=== PATIENT | female | born 1960 | race African-American/Black ===

== ENCOUNTER 2019-06-16 14:41 | Emergency (ER) | payer MEDICARE, MEDICAID ==
[~2019-06-16] VITALS: Ht 162.6 cm; Wt 112.5 kg
[~2019-06-16 14:41] MED LIST: AMLODIPINE BESYL5 MG ORAL; ASPIR 8181 MG ORAL; BACTRIM DS TAB1 EAC1 ORAL; BACTRIM-DS1 EA ORAL; CLOPIDOGREL75 MG ORAL; FLUOXETINE HCL20 MG ORAL; KEFLEX500 MG ORAL; NITROSTAT0.4 M1 SL; NORCO 5-325 TA1 EACH ORAL; SIMVASTATIN20 MG ORAL; TRAMADOL HCL50 MG ORAL; TYLENOL650 MG/20. ORAL
--- NOTE | 2019-06-16 15:11 | NUR ---
ED Nurse Note:urine sent to lab
[2019-06-16 15:41] LABS: APPEARANCE,URINE SLIGHTLY CLOUDY; BILIRUBIN, URINE NEGATIVE (NEGATIVE); GLUCOSE, URINE (UA) NEGATIVE (NEGATIVE); KETONES,URINE NEGATIVE (NEGATIVE); LEUKOCYTE ESTERASE ,URINE NEGATIVE (NEGATIVE); NITRITE,URINE NEGATIVE (NEGATIVE); PH,URINE 5 (4.5-8.0); PROTEIN,URINE 1+ (NEGATIVE); UROBILINOGEN,URINE NORMAL MG/DL (0.0-1.0)
[2019-06-16 15:42] LABS: COLOR,URINE YELLOW
[2019-06-16] MEDS ORDERED: Phenazopyridine 200mg tab ORAL ONE (16:15)
--- NOTE | 2019-06-16 16:21 | Emergency Room Report ---
History of Present Illness General Chief Complaint: Back Pain-No Injury Source: Patient Present Illness HPI 58-year-old female presents to the emergency department complaining of 10 out of 10 severity dysuria, hematuria, urinary frequency and abdominal pain that radiates towards the flank area bilaterally which has been progressive x1 week. Patient reports she has been taking oral antibiotics ciprofloxacin for 4 days with no improvement of her symptoms. Patient denies fevers or chills she denies nausea, vomiting, constipation or diarrhea. She denies trauma or fall. She denies intermittent sharp pain she reports her pain is constant and dull in it over the course of 1 week migrated from lower mid abdominal area towards the low back bilaterally. Patient denies paresthesias, saddle anesthesia or urinary retention/incontinence. She denies CP, SOB, dyspnea or Palpitations. She denies pain radiating straight back, or midline back pain. Allergies: Coded Allergies: IBUPROFEN (Verified Allergy, Intermediate, Hives, 08/25/13) Patient History Past Medical History: see triage record, HTN, OR Past Surgical History: none Pertinent Family History: none Last Menstrual Period: na Now: No Reviewed Nursing Documentation: PMH: Agreed; PSxH: Agreed Nursing Documentation-PMH Past Medical History: No History, Except For Hx Cardiac Problems: Yes - x2 stent, high cholesterol Hx Hypertension: Yes Review of Systems All Other Systems: negative except mentioned in HPI Physical Exam Vital Signs Date Time Temp Pulse Resp B/P (MAP) Pulse Ox O2 Delivery O2 Flow Rate FiO2 06/16/19 14:54 97.9 79 18 115/71 (86) 99 Room Air Sp02 EP Interpretation: reviewed, normal General Appearance: no apparent distress, alert, GCS 15, non-toxic Head: normocephalic, atraumatic Eyes: bilateral eye normal inspection, bilateral eye PERRL ENT: hearing grossly normal, normal voice Neck: full range of motion Respiratory: lungs clear, normal breath sounds, speaking full sentences Cardiovascular #1: regular rate, rhythm Gastrointestinal: normal bowel sounds, non tender - no appreciable tenderness on exam., soft, non-distended, no guarding Rectal: deferred Genitourinary: normal inspection, no CVA tenderness Musculoskeletal: back normal, normal range of motion, gait/station normal, non- tender Neurologic: alert, motor strength/tone normal, oriented x3, sensory intact, responsive, speech normal Psychiatric: judgement/insight normal Skin: no rash Lymphatic: no adenopathy Medical Decision Making PA Attestation Dr. Paz is my supervising Physician whom patient management has been discussed with. Diagnostic Impression: Primary Impression: Urinary frequency Additional Impression: UTI (urinary tract infection) Qualified Codes: N30.00 - Acute cystitis without hematuria ER Course 58-year-old female presents to the emergency department complaining of 10 out of 10 severity dysuria, hematuria, urinary frequency and abdominal pain that radiates towards the flank area bilaterally which has been progressive x1 week. Patient reports she has been taking oral antibiotics ciprofloxacin for 4 days with no improvement of her symptoms. Patient denies fevers or chills she denies nausea, vomiting, constipation or diarrhea. She denies trauma or fall. She denies intermittent sharp pain she reports her pain is constant and dull in it over the course of 1 week migrated from lower mid abdominal area towards the low back bilaterally. Patient denies paresthesias, saddle anesthesia or urinary retention/incontinence. She denies CP, SOB, dyspnea or Palpitations. She denies pain radiating straight back, or midline back pain. Ddx considered but are not limited to UTi , Pyelo, STI, Stone, Cystitis, appendicitis, acute abdomen, muscle strain just to name a few. Vital signs: are WNL, pt. is afebrile H&PE are most consistent with persistent UTI symptom. Pt. is nontoxic in appearance, no acute distress. No evidence to suggest acute abdomen on exam. No CVA tenderness indicating significant pyelonephritis. The patient is ambulatory on her own without assistance and is able to sit comfortably in ED chairs. ORDERS: - UA labs are attached : Moderate bacteria present ED INTERVENTIONS: Pyridium PO -I do not identify an emergent condition at this time. With current presentation , pt. is stable for close outpatient follow up and conservative treatment. D/ w pt. to return promptly to ED with worsening or new symptoms.- Pt. verbalizes' understanding and agreement with proposed treatment plan. DISCHARGE: At this time pt. is stable for d/c to home. Will provide printed patient care instructions, and any necessary prescriptions. Care plan and follow up instructions have been discussed with the patient prior to discharge. Labs Test 06/16/19 15:00 Urine Color Yellow Urine Appearance Slightly cloudy Urine pH 5 (4.5-8.0) Urine Specific [place] 1.020 (1.005-1.035) Urine Protein 1+ (NEGATIVE) Urine Glucose (UA) Negative (NEGATIVE) Urine Ketones Negative (NEGATIVE) Urine Blood Negative (NEGATIVE) Urine Nitrite Negative (NEGATIVE) Urine Bilirubin Negative (NEGATIVE) Urine Urobilinogen Normal MG/DL (0.0-1.0) Urine Leukocyte Esterase Negative (NEGATIVE) Urine RBC 0-2 /HPF (0 - 2) Urine WBC 0-2 /HPF (0 - 2) Urine Squamous Epithelial Cells Many /LPF (NONE/OCC) Urine Bacteria Moderate /HPF (NONE) Last Vital Signs Date Time Temp Pulse Resp B/P (MAP) Pulse Ox O2 Delivery O2 Flow Rate FiO2 06/16/19 14:54 97.9 79 18 115/71 (86) 99 Room Air Disposition: HOME, SELF-CARE Condition: Stable Scripts Trimethoprim/Sulfamethoxazole 160/800* (BACTRIM DS TABLET*) 1 Each Tablet 1 TAB ORAL TWICE A DAY for 7 Days, #14 TAB Prov: Gloria Segura 06/16/19 Phenazopyridine Hcl* (PYRIDIUM*) 100 Mg Tablet 100 MG ORAL THREE TIMES A DAY for 3 Days, #9 TAB Prov: Gloria Segura 06/16/19 Patient Instructions: Flank Pain, [id number], Urinary Tract Infection, Easy- to-Read Additional Instructions: Take medications as directed. Pyridium will cause your urine to change color (Red/Farrell), this is a normal side effect of the medication. Follow up with a Primary Care Provider within 3 days, even if your symptoms have resolved. Return sooner to ED if new symptoms occur, or current symptoms become worse. - Please note that this Emergency Department Report was dictated using [employer] pad[employer] technology software, occasionally this can lead to erroneous entry secondary to interpretation by the dictation equipment. Gloria Segura Jun 16, 2019 16:21
[2019-06-16 16:22] VITALS: BP 115/71
--- NOTE | 2019-06-16 16:22 | NUR ---
ED Nurse Note: RECEIVED PATIENT FROM JEROME GUTIERREZ. PATIENT RESTING IN CHAIR WITH NO ACUTE DISTRESS. MEDICATED PATIENT TOLERATED WELL. AWARE OF PENDING DISCHARGE; WAITING FOR PAPERWORK.
[2019-06-16] MEDS ORDERED: PHENAZOPYRIDIN100 MG ORAL (16:23)
[2019-06-16] MEDS ORDERED: BACTRIM DS TAB1 EAC1 ORAL (16:24)
[2019-06-16 16:33] VITALS: BP 115/71
--- NOTE | 2019-06-16 16:33 | NUR ---
ER DISCHARGE NOTE: Patient is cleared to be discharged per ERMD, pt is aox4, on room air, with stable vital signs. pt was given dc and prescription instructions, pt was able to verbalize understanding, pt id band REMOVED. pt is able to ambulate with steady gait. pt took all belongings.
== END 2019-06-16 16:33 | disposition home or self-care (01) ==
LOC: EMR 16:23
DX: N30.00 Acute cystitis without hematuria (principal); R35.0 Frequency of micturition; E78.00 Pure hypercholesterolemia, unspecified; I10 Essential (primary) hypertension; Z95.5 Presence of coronary angioplasty implant and graft; Z88.6 Allergy status to analgesic agent; I25.2 Old myocardial infarction
CPT/HCPCS: 81003; 87086; 99283

== ENCOUNTER 2020-03-06 13:27 | Emergency (ER) | payer MEDICARE, OTHER ==
[~2020-03-06] VITALS: Ht 163.8 cm; Wt 113.4 kg
[~2020-03-06 13:27] MED LIST changes: +AUGMENTIN 875-1 EAC1 ORAL; +DICLOFENAC SODI75 MG ORAL; +FUROSEMIDE20 M1 ORAL; +LIDOCAINE20 MG/1 M1 MM; +METOPROLOL SUCC25 MG ORAL; +NORCO 5-325 TA1 EAC1 ORAL; +OMEPRAZOLE40 M1 ORAL; +PHENAZOPYRIDIN100 MG ORAL; +SERTRALINE HCL25 MG ORAL; +TYLENOL EXTRA500 MG ORAL
--- NOTE | 2020-03-06 13:49 | NUR ---
ED Nurse Note: Pt walked in from home for bodyaches, chills, sore throat for 4 days. Pt is alert and orientedx4, ambulatory. Pt has been seen by ERMKamila. Set up on monitor. Pt denies nausea, vomiting, diarrhea.
[2020-03-06 13:50] VITALS: BP 128/76
--- NOTE | 2020-03-06 14:03 | Emergency Room Report ---
History of Present Illness General Chief Complaint: Flu Like Symptoms Source: Patient, Medical Record Present Illness HPI Disclaimer: Please note that this report is being documented using [employer] technology. This can lead to erroneous entry secondary to incorrect interpretation by the dictating instrument. HPI: 59-year-old female presents for evaluation sore throat. Symptoms present 3 days. Notes pain with swallowing but denies difficulty with secretions, eating or drinking. Reported low-grade fevers initially but states that home temperature readings have been below 99 degrees. Denies cough, shortness of breath, chest pain, headaches, earache, nausea, vomiting, diarrhea. She reports intermittent myalgias and arthralgias. Reports chills. No known sick contacts. Recent COVID test negative. No other symptoms. Has been using Tylenol with good effect. 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 Patient History Last Menstrual Period: 5-6 yrs ago Nursing Documentation-PMH Past Medical History: No History, Except For Hx Cardiac Problems: Yes - x2 stent, high cholesterol Hx Hypertension: Yes - Hypothyroidism Hx Pacemaker: No Hx Asthma: No Hx COPD: Yes Hx Diabetes: No Hx Cancer: No Hx Gastrointestinal Problems: No Hx Dialysis: No Hx Neurological Problems: No Hx Cerebrovascular Accident: No Hx Seizures: No Review of Systems All Other Systems: negative except mentioned in HPI Physical Exam Vital Signs Date Time Temp Pulse Resp B/P (MAP) Pulse Ox O2 Delivery O2 Flow Rate FiO2 03/06/20 13:30 96.1 89 18 124/74 (91) 99 Room Air 03/06/20 13:50 100 General: Awake and alert, no acute distress HEENT: NC/AT. EOMI. uvula midline. Tonsils 1+ nonobstructing. Mild erythema in the pharynx but no edema, no purulent drainage, no evidence of abscess. No lymphadenopathy appreciated. Cardiovascular: RRR. S1 and S2 normal. No murmur appreciated Resp: Normal work of breathing. No cough, wheezing or crackles appreciated Skin: Intact. No abrasions, laceration or rash over the exposed skin MSK: Normal tone and bulk. Moving all extremities. No obvious deformity. Neuro: Awake and alert. Mentating appropriately. Medical Decision Making Diagnostic Impression: Primary Impression: Upper respiratory infection ER Course Is a well-appearing 59-year-old female presenting for evaluation of sore throat, chills 3 days duration. Differential includes but is not limited to viral syndrome, pharyngitis, laryngitis, upper respiratory infection, sinusitis, rhinitis among others. Patient is well-appearing, afebrile, vital signs within normal limits. She has some mild pharyngeal erythema but no signs of gross infection. Likely a viral syndrome. Centor score is 0, patient is low risk and do not believe she requires antibiotics at this time. We will continue to use Tylenol on outpatient basis. Instructed to return with new or worsening symptoms, maintain isolation precautions and to follow-up with PMD. She understands and agrees with the treatment plan. Discharged home. Last Vital Signs Date Time Temp Pulse Resp B/P (MAP) Pulse Ox O2 Delivery O2 Flow Rate FiO2 03/06/20 13:50 96.1 92 17 128/76 100 Room Air 03/06/20 13:50 100 Disposition: HOME, SELF-CARE Condition: Stable Patient Instructions: Pharyngitis Additional Instructions: Please follow-up with your primary care doctor in the next 1 to 3 days to discuss this emergency department visit and for reevaluation. If you have any new or worsening symptoms please return to the emergency department for reevaluation. Please note that this report is being documented using [employer] technology. This can lead to erroneous entry secondary to incorrect interpretation by the dictating instrument. Tobi Gonzalez MD Mar 06, 2020 14:03
== END 2020-03-06 14:06 | disposition home or self-care (01) ==
LOC: EMR 14:00
DX: J06.9 Acute upper respiratory infection, unspecified (principal); I10 Essential (primary) hypertension; Z88.6 Allergy status to analgesic agent; M79.10 Myalgia, unspecified site; Z95.5 Presence of coronary angioplasty implant and graft; E78.00 Pure hypercholesterolemia, unspecified; E03.9 Hypothyroidism, unspecified; J44.9 Chronic obstructive pulmonary disease, unspecified
CPT/HCPCS: 99282

== ENCOUNTER 2020-04-23 11:56 | Emergency (ER) | payer MEDICARE, OTHER ==
[~2020-04-23] VITALS: Ht 162.6 cm; Wt 113.4 kg
[2020-04-23 13:01] LABS: APPEARANCE,URINE CLEAR; BILIRUBIN, URINE NEGATIVE (NEGATIVE); COLOR,URINE PALE YELLOW; GLUCOSE, URINE (UA) NEGATIVE (NEGATIVE); KETONES,URINE NEGATIVE (NEGATIVE); LEUKOCYTE ESTERASE ,URINE NEGATIVE (NEGATIVE); NITRITE,URINE NEGATIVE (NEGATIVE); PH,URINE 7 (4.5-8.0); PROTEIN,URINE 1+ (NEGATIVE); UROBILINOGEN,URINE NORMAL MG/DL (0.0-1.0)
--- NOTE | 2020-04-23 13:11 | Emergency Room Report ---
History of Present Illness General Chief Complaint: Female Urogenital Problems Present Illness HPI 58 YO female presents to the ED planing of 10 out of 10 severity left-sided low back pain with mid lower abdominal pain and dysuria x4 days. Patient denies fevers or chills. Patient denies hematuria or history of renal calculi. Patient denies midline back pain. She reports pain with bending forward, palpation of the left lower portion of the back. She denies trauma or fall. She reports on occasion she will have radiation towards the front of the left th igh. She denies posterior radiation. She reports she has been taking Tylenol at home with no relief. She reports she is able to ambulate on her own without assistance. Denies numbness tingling or loss of sensation or gross motor movements of the extremities, incontinence of bowel or bladder. Denies CP, Palpitations, LOC, AMS, dizziness, Changes in Vision, weakness or a sudden se wilfredo headache. 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 Patient History Past Medical History: see triage record Past Surgical History: none Pertinent Family History: none Now: No Reviewed Nursing Documentation: PMH: Agreed; PSxH: Agreed Nursing Documentation-PMH Hx Cardiac Problems: Yes - x2 stent, high cholesterol Hx Hypertension: Yes - Hypothyroidism Hx Pacemaker: No Hx Asthma: No Hx COPD: Yes Hx Diabetes: No Hx Cancer: No Hx Gastrointestinal Problems: No Hx Dialysis: No Hx Neurological Problems: No Hx Cerebrovascular Accident: No Hx Seizures: No Review of Systems All Other Systems: negative except mentioned in HPI Physical Exam Vital Signs Date Time Temp Pulse Resp B/P (MAP) Pulse Ox O2 Delivery O2 Flow Rate FiO2 04/23/20 12:24 98.2 82 20 146/93 (110) 96 Room Air Sp02 EP Interpretation: reviewed, normal General Appearance: no apparent distress, alert, GCS 15, non-toxic, obese Head: normocephalic, atraumatic Eyes: bilateral eye normal inspection, bilateral eye PERRL ENT: hearing grossly normal, normal voice Neck: full range of motion Respiratory: chest non-tender, lungs clear, normal breath sounds, speaking full sentences Cardiovascular #1: regular rate, rhythm Gastrointestinal: normal bowel sounds, non tender, soft, non-distended, no guarding Rectal: deferred Genitourinary: normal inspection, CVA tenderness (L) Musculoskeletal: no calf tenderness, gait/station normal, no lower extremity edema, tender - TTP to the left paraspinal musculature. NO midline ttp, no step offs palpated. Neurologic: alert, motor strength/tone normal, DTRs symmetric, oriented x3, sensory intact, responsive, speech normal, normal gait, grossly normal, no focal defects Psychiatric: judgement/insight normal Skin: no rash, normal color Lymphatic: no adenopathy Medical Decision Making PA Attestation Dr. Katz Is my supervising Physician whom patient management has been discussed with. Diagnostic Impression: Primary Impression: Back pain Qualified Codes: M54.5 - Low back pain ER Course 58 YO female presents to the ED planing of 10 out of 10 severity left-sided low back pain with mid lower abdominal pain and dysuria x4 days. Patient denies fevers or chills. Patient denies hematuria or history of renal calculi. P atient denies midline back pain. She reports pain with bending forward, palpation of the left lower portion of the back. She denies trauma or fall. She reports on occasion she will have radiation towards the front of the left thigh. She denies posterior radiation. She reports she has been taking Tylenol at home with no relief. She reports she is able to ambulate on her own without assistance. Denies numbness tingling or loss of sensation or gross motor movements of the extremities, incontinence of bowel or bladder. Denies CP, Palpitations, LOC, AMS, dizziness, Changes in Vision, weakness or a sudden severe headache. Ddx considered but are not limited to Diverticulitis, acute appendicitis, diarrhea,UC, PUD, GE, pancreatitis, gallstone, kidney stone, pyelonephritis, UTI, obstruction. Vital signs: are WNL, pt. is afebrile H&PE are most consistent with left-sided flank pain with need to rule out UTI/Pyelo versus musculoskeletal--patient is nontoxic in appearance in no acute distress. She is sitting comfortably on the gurney she is also been noted to be ambulatory without grimacing and without need for assistance. ORDERS: - UA: WNL - X-Ray L-Spine: WNL, some stool noted, pt. on norco regularly ( which pt. did not disclose to provider )- this was found on her CURES report ED INTERVENTIONS: -- Lidoderm TP -Pyridium -[place] 7.5 PO -I do not identify an emergent condition at this time. With current presentation, pt. is stable for close outpatient follow up and conservative treatment. D/w pt. to return promptly to ED with worsening or new symptoms.- Pt. verbalizes' understanding and agreement with proposed treatment plan. I discussed with patient that I will not be prescribing any additional opiates for at home as she is currently regularly prescribed some. I discussed with her that I will prescribe her Lidoderm patches and mild muscle relaxer. Discussed with patient that she needs to follow-up with her primary care provider or chronic pain management doctor to adjust any additional opiate needs. DISCHARGE: At this time pt. is stable for d/c to home. Will provide printed patient care instructions, and any necessary prescriptions. Care plan and follow up instructions have been discussed with the patient prior to discharge. Labs Test 04/23/20 12:40 Urine Color Pale yellow Urine Appearance Clear Urine pH 7 (4.5-8.0) Urine Specific [place] 1.010 (1.005-1.035) Urine Protein 1+ (NEGATIVE) Urine Glucose (UA) Negative (NEGATIVE) Urine Ketones Negative (NEGATIVE) Urine Blood Negative (NEGATIVE) Urine Nitrite Negative (NEGATIVE) Urine Bilirubin Negative (NEGATIVE) Urine Urobilinogen Normal MG/DL (0.0-1.0) Urine Leukocyte Esterase Negative (NEGATIVE) Urine RBC 0 /HPF (0 - 2) Urine WBC 0 /HPF (0 - 2) Urine Squamous Epithelial Cells Occasional /LPF Urine Bacteria Occasional /HPF (NONE) Other X-Ray Diagnostic Results Other X-Ray Diagnostic Results : X-Ray ordered: L-Spine # of Views/Limited Vs Complete: 3 View Indication: Pain EP Interpretation: Yes PA Xray: Interpretation reviewed, by supervising MD, and agrees with findings. Interpretation: no dislocation, no soft tissue swelling, no fractures, nonspecific bowel gas Impression: No acute disease Electronically Signed by: Gloria Segura PA-C Last Vital Signs Date Time Temp Pulse Resp B/P (MAP) Pulse Ox O2 Delivery O2 Flow Rate FiO2 04/23/20 12:24 98.2 82 20 146/93 (110) 96 Room Air Disposition: HOME, SELF-CARE Condition: Stable Scripts Lidocaine Patch* (Lidoderm Patch*) 1 Each Adh..patch 1 PATCH TOPIC DAILY, #30 PATCH 0 Refills Patch(es) may remain in place for up to 12 hours in any 24-hour period. Prov: Gloria Segura 04/23/20 Methocarbamol* (ROBAXIN-750*) 750 Mg Tablet 750 MG PO QID, #28 TAB 0 Refills Prov: Gloria Segura 04/23/20 Referrals: [facility]. [facility] Patient Instructions: Back Pain, Adult Additional Instructions: ~ ~ An emergent medical condition has not been identified based on this patients presentation, exam and any necessary testing/imaging. The patient is determined to be stable for outpatient follow-up and management of symptoms by a primary care provider. Do not drink alcohol, drive, or operate heavy machinery while taking Robaxin ( Muscle Relaxers) as this may cause drowsiness. Take medications as directed. Follow up with a Primary Care Provider in 3-5 days, even if your symptoms have resolved. --Please review list of primary care clinics, if you do not already have a primary care provider Return sooner to ED if new symptoms occur, or current symptoms become worse. - Please note that this Emergency Department Report was dictated using dianboom[employer] supplier technology software, occasionally this can lead to erroneous entry secondary to interpretation by the dictation equipment. Gloria Segura Apr 23, 2020 13:11
[2020-04-23] MEDS ORDERED: HYDROcodone/Acetamin 7.5/325 tab ORAL ONE (13:30)
[2020-04-23] MEDS ORDERED: Phenazopyridine 200mg tab ORAL ONE (13:30)
--- NOTE | 2020-04-23 14:30 | NUR ---
ED Nurse Note:pt. came from home with possible UTI and left shoulder pain, pt. is ambulatory, pain meds given, x-rays done
[2020-04-23 15:28] VITALS: BP 146/93
[2020-04-23] MEDS ORDERED: LIDODERM700 M1 TOPIC (15:47)
[2020-04-23] MEDS ORDERED: ROBAXIN-750750 MG PO (15:47)
--- NOTE | 2020-04-23 16:00 | NUR ---
ED Nurse Note: Pt cleared by health care Provider for discharge. DC instructions/prescription was given and explained to pt and verbalized understanding of teachings. All medical deviecs such as ID band removed. Pt is AAO x4, ambulatory and left with all personal belongings.
--- NOTE | 2020-04-23 16:52 | Diagnostic Imaging Report ---
Indication: Lumbar spine pain Technique: 3 views of the lumbar spine Comparison: None Findings: Bony alignment is normal. Vertebral body heights are preserved. Disc spaces are preserved. Pedicles are intact. Sacral arches are preserved. Sacroiliac joint spaces are preserved Impression: Negative
== END 2020-04-23 16:00 | disposition home or self-care (01) ==
LOC: EMR 12:40
DX: M54.5 Low back pain (principal); I11.9 Hypertensive heart disease without heart failure; E78.00 Pure hypercholesterolemia, unspecified; J44.9 Chronic obstructive pulmonary disease, unspecified; Z95.5 Presence of coronary angioplasty implant and graft; Z88.6 Allergy status to analgesic agent
CPT/HCPCS: 72020; 81003; 99284

== ENCOUNTER 2020-06-16 15:44 | Emergency (ER) | payer MEDICARE, OTHER ==
[~2020-06-16] VITALS: Ht 162.6 cm; Wt 113.4 kg
[~2020-06-16 15:44] MED LIST changes: +LIDODERM700 M1 TOPIC; +ROBAXIN-750750 MG PO
[2020-06-16 15:50] VITALS: BP 137/85
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
[2020-06-16] MEDS ORDERED: HYDROcodone/Acetamin 5/325 tab ORAL ONE (16:30)
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
[2020-06-16] MEDS ORDERED: LIDODERM700 M1 TOPIC (16:42)
[2020-06-16] MEDS ORDERED: ORPHENADRINE C100 MG PO (16:42)
[2020-06-16 17:00] VITALS: BP 141/89
--- NOTE | 2020-06-16 17:00 | NUR ---
ED Nurse Note: Pt cleared by health care Provider for discharge. DC instructions/prescription were given and explained to pt and verbalized understanding of teachings. All medical deviecs such as ID band removed. Pt is AAO x4, ambulatory and left with all personal belongings.
== END 2020-06-16 18:57 | disposition home or self-care (01) ==
LOC: EMR 16:30
DX: M54.41 Lumbago with sciatica, right side (principal); M54.10 Radiculopathy, site unspecified; E78.00 Pure hypercholesterolemia, unspecified; E03.9 Hypothyroidism, unspecified; J44.9 Chronic obstructive pulmonary disease, unspecified; Z88.6 Allergy status to analgesic agent; V49.9XXA Car occupant (driver) (passenger) injured in unspecified traffic accident, initial encounter; Y92.411 Interstate highway as the place of occurrence of the external cause
CPT/HCPCS: 99282